=== PATIENT | female | born 1995 | race Caucasian/White ===

== ENCOUNTER 2017-11-15 12:19 | Emergency (ER) | payer BC, MEDICAID ==
[2017-11-15 12:49] VITALS: BP 121/73
--- NOTE | 2017-11-15 14:44 | UC ---
Rosa Lizama Thomas, scribed for Kady Jimenez DO on 11/15/17 at 1333 . General HPI - HPI Summary HPI Summary: The patient is a 22 year old female complaining of chills, headache, sore throat , ear pain, body aches, sinus tenderness, and nasal discharge for the last two days. She has been able to eat, drink, and swallow her saliva. The patient also complains of lightheadedness when she stands up. The patient denies cough, shortness of breath, nausea, vomiting, and diarrhea. - History of Current Complaint Chief Complaint: UCRespiratory Stated Complaint: ACHES, AND SORE THROAT Time Seen by Provider: 11/15/17 12:52 Hx Obtained From: Patient Hx Last Menstrual Period: 6 months ago post Onset/Duration: Lasting Days - 2, Still Present Timing: Constant Current Severity: Moderate Pain Intensity: 5 Pain Location at: head, throat, diffuse body aches Associated Signs & Symptoms: Positive: Other - Chills, headache, sore throat, sinus tenderness, ear pain, body aches, nasal discharge, lightheadedness; NEGATIEV: cough, shortness of breath, nausea, vomiting, and diarrhea. - Allergy/Home Medications Allergies/Adverse Reactions: Allergies Allergy/AdvReac Type Severity Reaction Status Date / Time No Known Allergies Allergy Verified 11/15/17 12:49 PMH/Surg Hx/FS Hx/Imm Hx - Additional Past Medical History Additional PMH: NEGATIVE: DM, HTN - Surgical History Surgical History: Yes Surgery Procedure, Year, and Place: ORAL SX. tonsillectomy - Family History Known Family History: Positive: Hypertension - Social History Alcohol Use: Rare Substance Use Type: Marijuana Smoking Status (MU): Light Every Day Tobacco Smoker Type: Cigarettes Amount Used/How Often: 6 CIGS Have You Smoked in the Last Year: Yes Household Exposure Type: Cigarettes Review of Systems Constitutional: Chills ENT: Sore Throat, Ear Ache, Nasal Discharge, Other - Sinus tenderness Musculoskeletal: Myalgia Neurological: Headache, Other - Lightheadedness (when she stands up) Is Patient Immunocompromised?: No All Other Systems Reviewed And Are Negative: Yes Physical Exam - Summary Physical Exam Summary: Appearance: Mildly ill-appearing, No Pain Distress, Well-Nourished Eyes: conjunctiva clear, no discharge ENT: Hearing grossly normal, no muffled/hoarse voice. TMs normal, negative tonsillar swelling, negative tonsillar exudate, negative trismus. Neck: Normal, Supple Respiratory/Lung Sounds: Lungs clear, Normal breath sounds, No respiratory distress, No accessory muscle use Cardiovascular: RRR, No murmur Musculoskeletal: Normal Neurological: Alert, muscle tone normal Psychiatric:Normal, age appropriate behavior Skin: Normal, Warm, Dry, Normal color Triage Information Reviewed: Yes Vital Signs: Initial Vital Signs Temp 99.0 F 11/15/17 12:47 Pulse 95 11/15/17 12:47 Resp 12 11/15/17 12:47 BP 121/73 11/15/17 12:47 Pulse Ox 100 11/15/17 12:47 Vital Signs Reviewed: Yes Course/Dx - Differential Dx - Multi-Symptom Provider Diagnoses: Viral sinusitis Discharge - Discharge Plan Condition: Stable Disposition: HOME Prescriptions: guaiFENesin ER TAB [Mucinex*] 600 mg PO BID PRN #1 box PRN Reason: Cough Magic Mouth Was-ARI/MAAL/LIDO* 5 ml SWISH SPIT QID PRN #100 ml PRN Reason: Pain Patient Education Materials: Pharyngitis (ED), Sinusitis (ED) Forms: *Gen. Provider Communication, *Work Release Referrals: Kavitha Levine PA [Primary Care Provider] - If Needed Additional Instructions: TRY USING THE NETTI POT IN THE MORNINGS DISCUSSED. YOU MUST ALWAYS USE CLEAN WATER. REMEMBER, POSTURE IS AN IMPORTANT FACTOR IN SINUS DRAINAGE. MOVE YOUR NECK, BREATHE. DISCUSSED, TRY MAGIC MOUTHWASH TO CONTROL PAIN PRIOR TO EATING. EXPECTORANT MEDICATION: WE SENT IN A SCRIPT FOR MUCINEX SO THAT IT IS EASIER FOR YOU TO PICK THE RIGHT MED AT THE PHARMACY. HOWEVER, YOU CAN ALSO GO TO THE [facility] AND BUY PLAIN GUAIFENESIN WITHOU BINDERS OR FILLERS. An expectorant medicine has been prescribed. This type of drug makes mucous thinner, helping the sinuses, nose, and bronchial tubes to remain free of pus and mucous. Expectorants make a cough less severe and more comfortable, and help infected sinuses drain. In general, antihistamines defeat the purpose of the expectorant by making mucous thicker. They should be avoided unless specifically recommended by your physician. The documentation as recorded by the Rosa anand Thomas accurately reflects the service I personally performed and the decisions made by me, Kady Jimenez DO.
== END 2017-11-15 14:20 | disposition home or self-care (01) ==
LOC: UCEAST 12:19
DX: J01.90 Acute sinusitis, unspecified (principal); H92.09 Otalgia, unspecified ear; J02.9 Acute pharyngitis, unspecified; M79.1 Myalgia; R42 Dizziness and giddiness; F17.210 Nicotine dependence, cigarettes, uncomplicated
CPT/HCPCS: 87502; 87651; 99212; G0463

== ENCOUNTER 2018-03-14 17:20 | Emergency (ER) | payer BC, MEDICAID ==
[2018-03-14 17:41] VITALS: BP 101/70
[2018-03-14] MEDS ORDERED: Penicillin VK TAB* 250 MG PO ONE (17:51)
[2018-03-14] MEDS ORDERED: Ibuprofen TAB* 600 MG PO ONE (17:51)
--- NOTE | 2018-03-14 18:03 | UC ---
Dental HPI - HPI Summary HPI Summary: Pt has had 3rd molars in for years, thinks they broke off years ago, has had increasing pain starting 2 days ago. Has medicaid dental insurance. - History of Current Complaint Chief Complaint: UCDentalProblem Stated Complaint: TOOTH PAIN Time Seen by Provider: 03/14/18 17:33 Hx Obtained From: Patient Hx Last Menstrual Period: 2 yrs ago ?: No Onset/Duration: Gradual Onset, Lasting Days Severity: Moderate Pain Intensity: 8 Aggravating Factor(s): Chewing - Allergies/Home Medications Allergies/Adverse Reactions: Allergies Allergy/AdvReac Type Severity Reaction Status Date / Time No Known Allergies Allergy Verified 03/14/18 17:41 PMH/Surg Hx/FS Hx/Imm Hx Previously Healthy: Yes - Surgical History Surgical History: Yes Surgery Procedure, Year, and Place: ORAL SX. tonsillectomy - Family History Known Family History: Positive: Hypertension - Social History Alcohol Use: None Substance Use Type: Marijuana Smoking Status (MU): Light Every Day Tobacco Smoker Type: Cigarettes Amount Used/How Often: 6 CIGS Have You Smoked in the Last Year: Yes Household Exposure Type: Cigarettes Review of Systems Constitutional: Negative Skin: Negative Eyes: Negative ENT: Dental Pain Respiratory: Negative Cardiovascular: Negative Gastrointestinal: Negative Genitourinary: Negative Motor: Negative Neurovascular: Negative Musculoskeletal: Negative Neurological: Negative Psychological: Negative Is Patient Immunocompromised?: No All Other Systems Reviewed And Are Negative: Yes Physical Exam Triage Information Reviewed: Yes Appearance: Well-Appearing, No Pain Distress, Well-Nourished Vital Signs: Initial Vital Signs Temp 98.8 F 03/14/18 17:38 Pulse 88 03/14/18 17:38 Resp 18 03/14/18 17:38 BP 101/70 03/14/18 17:38 Pulse Ox 100 03/14/18 17:38 Vital Signs Reviewed: Yes Eye Exam: Normal Eyes: Positive: Conjunctiva Clear ENT Exam: Normal ENT: Positive: Normal ENT inspection, Hearing grossly normal, Pharynx normal, TMs normal Dental: Positive: Percussion Tenderness @ - #16, Dental Fracture @ - #1 and #16 broken off at the gums. Negative: Abscess @, Cellulitis @, Cervical Lymphadenopathy Neck exam: Normal Neck: Positive: Supple, Nontender, No Lymphadenopathy Respiratory Exam: Normal Respiratory: Positive: Chest non-tender, Lungs clear, Normal breath sounds, No respiratory distress, No accessory muscle use Cardiovascular Exam: Normal Cardiovascular: Positive: RRR Musculoskeletal Exam: Normal Neurological Exam: Normal Psychological Exam: Normal Skin Exam: Normal Dental Complaint Course/Dx - Differential Dx/Diagnosis Provider Diagnoses: Dental pain #16. Dental infection #16 Discharge - Sign-Out/Discharge Documenting (check all that apply): Discharge/Admit/Transfer - Discharge Plan Condition: Stable Disposition: HOME Prescriptions: Penicillin VK 500 MG TAB(NF) [Penicillin VK 500 mg Tab] 1,000 mg PO BID #26 tab Patient Education Materials: Toothache (ED) Referrals: Kavitha Levine PA [Primary Care Provider] - Additional Instructions: I recommend you have a follow-up visit with [facility] or [facility] as soon as possible. You will need work to help with your toothache. Call or come back if you develop fever, increasing pain, or redness on the skin. - Billing Disposition and Condition Condition: STABLE Disposition: Home
== END 2018-03-14 18:12 | disposition home or self-care (01) ==
LOC: UCEAST 17:20
DX: K04.7 Periapical abscess without sinus (principal); K08.89 Other specified disorders of teeth and supporting structures; F17.210 Nicotine dependence, cigarettes, uncomplicated; Z98.890 Other specified postprocedural states
CPT/HCPCS: 99212; A9270-GY; G0463

== ENCOUNTER 2019-04-19 15:53 | Emergency (ER) | payer BC, MEDICAID, OTHER | END 2019-04-19 17:25 | disposition home or self-care (01) | LOC: UCEAST 15:53 | DX: Z53.8 Procedure and treatment not carried out for other reasons (principal) | CPT/HCPCS: 87651; 99212; G0463 ==